=== PATIENT | male | born 1990 | race Two or more races ===

== ENCOUNTER → 2018-08-01 | Emergency (ER) | payer MEDICAID, OTHER ==
[~2018-08-01] VITALS: Ht 162.6 cm; Wt 63.5 kg
[~2018-08-01] MED LIST: HYDROcodone-ACET 10/325MG TAB PO ONE
[2018-08-01 19:22] VITALS: BP 131/94
== END | disposition home or self-care (01) ==
LOC: ER 19:04
DX: M54.2 Cervicalgia (principal); R51 Headache; M62.838 Other muscle spasm; W20.8XXA Other cause of strike by thrown, projected or falling object, initial encounter; Y93.89 Activity, other specified; Y92.89 Other specified places as the place of occurrence of the external cause; Y99.8 Other external cause status
CPT/HCPCS: 72125; 72128